=== PATIENT | male | born 1940 | race African-American/Black ===

== ENCOUNTER → 2018-03-19 | Outpatient (CLI) | payer OTHER ==
[~2018-03-19] VITALS: Ht 180.3 cm; Wt 116.1 kg
[~2018-03-19] MED LIST: ASPIR 8181 MG PO; BACITRAYCIN PLU28 GM TOP; CONSTULOSE10 GM/15 M PO; COZAAR 50 MG TA50 M2 PO; CRESTOR40 MG PO; DICLOFENAC SODIUM; FLOMAX0.4 MG PO; GABAPENTIN 100100 MG PO; HYDRALAZINE 2525 M1 PO; IMDUR 30 MG TAB30 M1 PO; LANTUS100 UNIT/M SUBQ; LASIX 40 MG TAB40 M2 PO; MIRALAX17 GM PO; NITROGLYCERIN0.4 MG SUBLING; NOVOLOG100 UNIT/1 SUBQ; OMEPRAZOLE 20 M20 M1 PO; PLAVIX 75 MG TA75 M1 PO; PROSCAR 5MG TABL5 MG PO; STOOL SOFTENER100 M1 PO; TOPROL XL100 MG PO
--- NOTE | ~2018-03-19 | HPC ---
[facility] [address] [place] [address] PAIN MANAGEMENT CONSULTATION Name: GALLITOIDA Room #: REG [facility] [id number] Admission: 03/19/18 Attend Phys: Federico Thompson DO Discharge: Date of : 40 Report #: [id number] THIS REPORT FOR: //name// CC: IMER NOGUEIRA Physician staff [facility] Federico Thompson DATE OF SERVICE: 03/19/2018 The patient is a 77-year-old gentleman seen in consultation at the request of [place] for evaluation of pain, low back and right leg to the knee. Has paresthesias going down into the thigh and foot. He had epidural injections 5-6 years ago with overall improvement of baseline pain. Had 2 lumbar decompressive laminectomies, initially in 1966 and again in 1970. Notes he did well after those surgeries. He has been doing cardiac rehab the last 3 months with increasing radicular pain, though no other specific antecedent trauma has occurred. He notes pain is exacerbated with standing and walking, gets some relief when he is recumbent. Describes constant, gnawing, throbbing pain, rates anywhere from 8-10 on a VAS. He has been taking oxycodone rarely, mostly Tylenol 650 with better efficacy. Denies bowel or bladder continence changes. REVIEW OF SYSTEMS: Complete review of systems is attached to chart and gone over with the patient. He is , does not smoke or drink alcohol to excess. History of diabetes, pleased that his hemoglobin A1c is about 7.9, does use insulin. Significant respiratory disease, uses albuterol and budesonide. Metoprolol and losartan for hypertension, endovascular stents multiple over the years, had coronary artery bypass graft surgery in 2008, has had up to 10 stents, the last one being 2 years ago, does take Plavix. Dyslipidemia for which he takes lovastatin. Benign prostatic hypertrophy for which he takes tamsulosin and finasteride. Gastroesophageal reflux for which he takes omeprazole. He has been taking some prednisone recently for axial back pain with some efficacy. 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 Pain impact score is fairly high, averaging 62/70. PHYSICAL EXAMINATION: GENERAL: Reveals a 5 feet 10 inches, 259 pound gentleman, BMI is 35.7 kg per meter squared. Blood pressure 122/66, pulse 71, respirations are 14. Subjective pain score is 8 on a VAS at present. NEUROLOGIC: Cranial nerves 2-12 are grossly intact. HEENT: Pupils equal, react to light and accommodation. Extraocular muscles are intact. NECK: Thyroid is unremarkable. Cervical range of motion is full. MUSCULOSKELETAL: Upper extremity strength is preserved. Does have an [address] [address] PAIN MANAGEMENT CONSULTATION Name: IDA CONTI Room #: REG CLDebbie Corley#: [id number] Admission: 03/19/18 Attend Phys: Federico Thompson DO Discharge: Date of : 40 Report #: [id number] endomorphic build. He has a difficult time rising from the chair. Markedly antalgic gait. Right dorsiflexion strength is significantly limited at about 1/5, right lower extremity extension and hip flexion is limited about 2-3/5. Left leg is stronger at 3-4/5. Straight leg raise is negative. Patellar and Achilles reflexes are diminished symmetrically. Passive rotation of the hip exacerbates some pain, though BURT test is negative. DIAGNOSTIC STUDIES: Include x-ray of the right hip, which does note osteoarthritic changes, MRI of the lumbar spine from 07/12/2015 had noted severe right neuroforaminal narrowing at L4-L5 and bilateral severe neuroforaminal narrowing at L5-S1. ASSESSMENT: Symptomatic lumbar radiculopathy status post decompressive laminectomy with ongoing right L4-L5 radicular pain, component of osteoarthritis. RECOMMENDATIONS: 1. We will seek authorization for lumbar epidural injection under fluoroscopy off Plavix for 7 days, right of midline L4-L5. 2. Continue current medications unchanged. 3. Consideration for right hip injection if indicated clinically. Thank you for allowing me to participate in the patient's care. I will keep you abreast of our progress. <ELECTRONICALLY SIGNED> By: Federico Thompson DO 03/22/18 [id number] Federico Thompson DO /nt
[2018-03-19 12:38] VITALS: BP 122/66
== END ==
LOC: PAIN 07:18
DX: M54.16 Radiculopathy, lumbar region (principal); M54.5 Low back pain

== ENCOUNTER → 2018-03-26 | Outpatient (CLI) | payer OTHER ==
[~2018-03-26] VITALS: Ht 180.3 cm; Wt 117.3 kg
--- NOTE | ~2018-03-26 | HPC ---
[facility] [address] [place] [address] PAIN MANAGEMENT CONSULTATION Name: IDA CONTI [facility] #: [facility] [id number] Admission: 03/26/18 Attend Phys: Federico Thompson DO Discharge: Date of : 40 Report #: [id number] THIS REPORT FOR: //name// CC: IMER NOGUEIRA Physician staff Federico Thompson DATE OF SERVICE: 03/26/2018 The patient is a very pleasant 77-year-old gentleman, prior seen in consultation 03/19/2018, diagnosed with symptomatic lumbar radiculopathy status post decompressive laminectomy, osteoarthritis, right hip. We sought authorization for epidural injection under fluoroscopy, off Plavix for 7 days. Returns to pain clinic today for said injection. I did review MRI, which was obtained 03/17/2018. Does show S-shaped lumbar curvature, multilevel osteophytes and spondylosis. Severe central narrowing at L2-L3. L3-L4 notes severe central stenosis, severe bilateral neural foraminal stenosis. L4-L5 notes post-surgical changes bilateral laminectomies with moderate to severe right neural foraminal narrowing. L5-S1 notes bilateral facet arthropathy. ASSESSMENT: Symptomatic lumbar radiculopathy by clinical exam and history, status post lumbar decompressive laminectomy. RECOMMENDATIONS: Epidural injection under fluoroscopy today at L4-L5. Resume Plavix tomorrow. Follow up in 3 weeks for reevaluation. PROCEDURE: Lumbar epidural injection under fluoroscopy. PROCEDURE NOTE: After both written and informed consent to include risk of spinal cord damage, increased pain, weakness and dural puncture, the patient was taken to the fluoroscopy suite, placed in the prone position. After sterile prep and drape, a skin wheal with lidocaine was raised. A 22-gauge epidural Tuohy needle was inserted in the midline at L4-L5 with good loss to resistance. Negative aspiration for cerebrospinal fluid or blood was noted. Then 1 mL of Omnipaque under biplanar fluoroscopy showed good spread within the epidural space. This was followed with 60 mg of triamcinolone plus 1 mL of 1.5% preservative-free Xylocaine, 0.5 mL Xylocaine was then injected to flush the needle; it was removed. The patient was monitored for an appropriate period of time and discharged in good and stable condition. <ELECTRONICALLY SIGNED> By: Federico Thompson DO 03/29/18 [id number] Federico Thompson DO /nt
[2018-03-26 08:13] VITALS: BP 130/67
== END | disposition home or self-care (01) ==
LOC: PAIN 06:48
DX: M54.16 Radiculopathy, lumbar region (principal); G89.29 Other chronic pain; M16.11 Unilateral primary osteoarthritis, right hip; J45.909 Unspecified asthma, uncomplicated; Z88.0 Allergy status to penicillin; Z98.890 Other specified postprocedural states; Z79.899 Other long term (current) drug therapy; Z79.82 Long term (current) use of aspirin

== ENCOUNTER → 2018-04-16 | Outpatient (CLI) | payer OTHER ==
[~2018-04-16] VITALS: Ht 180.3 cm; Wt 116.6 kg
[~2018-04-16] MED LIST changes: +METFORMIN HCL500 MG PO
[2018-04-16 10:53] VITALS: BP 129/72
== END | disposition home or self-care (01) ==
LOC: PAIN 06:32
DX: M54.16 Radiculopathy, lumbar region (principal)

== ENCOUNTER → 2018-05-14 | Outpatient (CLI) | payer OTHER ==
[~2018-05-14] VITALS: Ht 180.3 cm; Wt 115.8 kg
--- NOTE | ~2018-05-14 | HPC ---
[facility] [place] [address] PAIN MANAGEMENT CONSULTATION Name: GALLITOIDA Room #: REG [facility] [id number] Admission: 05/14/18 Attend Phys: Lali Lofton MD Discharge: Date of : 40 Report #: [id number] THIS REPORT FOR: //name// CC: IMER Lofton Physician staff DATE OF SERVICE: 05/14/2018 FOLLOWUP COMPLAINT: The patient is a 77-year-old black male who has been seen in the Pain Clinic. He suffers from lumbar radiculopathy. He has undergone back injections and gleaned some benefit from these. He returns today indicating that he has gleaned benefit from the last injection. He does have some soreness in the low back area, but overall things have improved. His concern now is that of his right leg. He has some problem with his right hip as well as with the right knee. He has been told that he has an ejection fraction in the 20s to 30s. He has some concern in regards to the possibility of undergoing hip replacement/knee replacement in the future. He rates his pain as a 9/10 at this point. Right hip is quite problematic. ALLERGIES: PENICILLIN. CURRENT MEDICATIONS: Metformin 500 mg, diclofenac drops to the eyes, Proscar 5 mg b.i.d., insulin 8 units subQ q. 5 minutes before meals, Lantus 100 units/35 units subq at bedtime, omeprazole 20 mg, stool softener, docusate 100 mg, lactulose 4 times daily, MiraLax 17 grams, bacitracin 28 grams ointment b.i.d. topical, Cozaar 50 mg, Lasix 40 mg b.i.d., hydralazine 25 mg t.i.d., Crestor 40 mg, Imdur 30 mg 2 tablets t.i.d., Nitrostat 0.4 mg sublingual, Flomax 0.4 mg, metoprolol XL 100 mg, Neurontin 100 mg b.i.d., aspirin 81 mg, and Plavix 75 mg. PAIN CLINIC ASSESSMENT: 1. History of osteoarthritis. The patient has arthritic changes in his hip as well as some pain and discomfort in his right knee. Height 5 feet 11 inches, weight 255 pounds, BMI is 35.6. 2. Vital signs: Blood pressure 127/64, pulse 80, respiratory rate 16, room air saturation 97%. 3. Pain intensity 05/31. 4. Fall risk. The patient uses a walker. Uses a cane when he is at home. Occasionally, dizzy at times. He has not fallen in the last 3 months. 5. The patient is on a blood thinner, Plavix. 6. History of hypertension. 7. Opioid greater than 6 weeks. The patient is not on opioid regimen. 8. Risk assessment tool. 9. Functional assessment tool 59/70. 10. Recreational drug use. The patient denies use of recreational drugs. 11. Tobacco: The patient has never smoked. [address] [address] PAIN MANAGEMENT CONSULTATION Name: GALLITOIDA Glenda Room #: REG CLDebbie Corley#: [id number] Admission: 05/14/18 Attend Phys: Lali Lofton MD Discharge: Date of : 40 Report #: [id number] 12. Alcohol: The patient denies use of alcoholic beverages. PHYSICAL EXAMINATION: GENERAL: The patient is a well-developed, somewhat obese black male, appears his stated age. He is alert and oriented x 3. His is present with him. HEENT: Normocephalic, atraumatic. Extraocular eye muscles intact. Sclerae nonicteric. Mucous membranes are moist. NECK: Without JVD or adenopathy. HEART: Regular rate. ABDOMEN: Protuberant. LUNGS: Decreased breath sounds secondary to the patient's body habitus. EXTREMITIES: Upper extremity muscle strength is judged to be 4+/5 for the major muscle groups. Lower extremity, the patient has muscle strength is judged to be 5- for the major muscle groups in the lower extremity. The patient uses his hands to go from a sitting to a standing position takes a few seconds to stand and get upright. Walks with the use of a rolling walker. IMPRESSION: 1. History of arthritic changes/osteoarthritis involving the right hip and knee. 2. Myocardial history -- ejection fraction 20s-30s. 3. Diabetes mellitus. 4. History of lumbar laminectomies with history of lumbar radiculopathy and if we had not already said, I think he may have osteoarthritic changes in the right hip. 5. Essential hypertension. 6. Chronic kidney disease stage 2. 7. History of atrial fibrillation. 8. History of coronary artery bypass grafting. 9. Gastroesophageal reflux. 10. Benign prostatic hypertrophy. 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 12. Peptic ulcer history. RECOMMENDATIONS: We discussed treatment options with the patient. At this juncture, he is contemplating the possibility of undergoing a hip injection. The patient states that he is going to talk with another surgeon. He is contemplating the possibility of undergoing a right hip replacement. He would like to undergo a right knee injection or replacement in the future if possible. He will follow up with us in the future. [address] [address] PAIN MANAGEMENT CONSULTATION Name: IDA CONTI Room #: REG [facility] Barney#: [id number] Admission: 05/14/18 Attend Phys: Lali Lofton MD Discharge: Date of : 40 Report #: [id number] We would like to thank you for letting us participate in his care. We hope he continues to improve. By: [id number] Lali Lofton MD /valerie
[2018-05-14 13:55] VITALS: BP 127/64
== END ==
LOC: PAIN 07:04
DX: M54.16 Radiculopathy, lumbar region (principal); E11.22 Type 2 diabetes mellitus with diabetic chronic kidney disease; I12.9 Hypertensive chronic kidney disease with stage 1 through stage 4 chronic kidney disease, or unspecified chronic kidney disease; N18.2 Chronic kidney disease, stage 2 (mild); I48.91 Unspecified atrial fibrillation; I25.10 Atherosclerotic heart disease of native coronary artery without angina pectoris; K21.9 Gastro-esophageal reflux disease without esophagitis; N40.1 Benign prostatic hyperplasia with lower urinary tract symptoms

== ENCOUNTER → 2019-01-19 | Outpatient (CLI) | payer OTHER ==
[~2019-01-19] VITALS: Ht 180.3 cm; Wt 113.3 kg
[~2019-01-19] MED LIST changes: +HYDROCODON-ACE1 EAC7 PO
--- NOTE | ~2019-01-19 | HPC ---
[facility] [address] [place] [address] PAIN MANAGEMENT CONSULTATION Name: IDA CONTI Glenda Room #: REG [facility] Barney#: [id number] Admission: 01/19/19 ������������������ Attend Phys: Lali Lofton MD Discharge: ������������������ Date of : 40 Report #: [id number] THIS REPORT FOR: //name// CC: IMER Lofton Physician staff DATE OF SERVICE: 01/19/2019 CHIEF COMPLAINT: Pain in my left hip is better since I had injection, but I am having pain in my back that was helped with the last injection. HISTORY: The patient is a 78-year-old gentleman who has been followed in the pain clinic. As you recall, he has had back pain for a number of years. He has had 2 back surgeries in the past. He has noted pain and discomfort involving his right hip. States that he has [id number] problems with his hip. He underwent an injection and noted some benefit from that. He is having some pain and discomfort in his left hip. He feels that this might be exacerbated because of his change in mobility because of pain and discomfort in the right hip. He feels that the pain in the low back area improved after the last epidural steroid injection. He has returned today with the hopes of undergoing an epidural steroid injection. He has continued to take his Plavix. He states that he tries to stay as active as possible. Pain is sometimes quite problematic. He is unable to engage in certain activities. He is limited in the amount of aspirin type medications that he can take. He feels that sometimes just a small amount of pain medicine would afford him a much more comfortable level of activity and they him to engage in other activities. He continues to walk with a rolling walker. ALLERGIES: PENICILLIN. CURRENT MEDICATIONS: Metformin 500 mg, diclofenac drops to the eye, Proscar 5 mg b.i.d., insulin 8 units subcutaneous every 5 minutes before meals, Lantus 35 units subcutaneous at bedtime, omeprazole 20 mg, stool softener, docusate 100 mg, lactulose 4 times daily, MiraLax 17 grams, Bacitracin 28 grams ointment b.i.d. topical, Cozaar 50 mg, Lasix 40 mg b.i.d., hydralazine 25 mg t.i.d., Crestor 40 mg, Imdur 30 mg 2 tablets t.i.d., Nitrostat 0.4 mg sublingual, Flomax 0.4 mg, metoprolol XL 100 mg b.i.d., Neurontin 100 mg b.i.d., aspirin 81 mg, Plavix 75 mg. PAIN CLINIC ASSESSMENT/PQRS: 1. History of osteoarthritis involving his low back as well as his left and right hip with [id number] pain. Height 5 feet 11 inches, weight 249 pounds, BMI is 34.9. 2. VITAL SIGNS: Blood pressure 131/70, pulse 67, respiratory rate 16, room air saturation 99%. [place] [address] PAIN MANAGEMENT CONSULTATION Name: GALLITOIDA Room #: REG CLeDbbie Corley#: [id number] Admission: 01/19/19 ������������������ Attend Phys: Lali Lofton MD Discharge: ������������������ Date of : 40 Report #: [id number] 3. Pain intensity 04/30. 4. Fall history. The patient needs some help when he is standing. He has not fallen in the last 3 months. 4. Blood thinner. The patient is on Plavix. 5. Hypertension. The patient has been treated for hypertension. 6. Opioid greater than 6 weeks. The patient is not on an opioid regimen. 7. Risk assessment for opioid low. 8. Functional assessment /. 9. Recreational drug use. The patient denied. 10. Alcohol: The patient denies without use of alcoholic beverages. PHYSICAL EXAMINATION: GENERAL: The patient is a well-developed, well-nourished, somewhat obese black male, appears his stated age. He is alert and oriented x 3. His affect is appropriate. Speech is fluent. HEAD, EYES, EARS, NOSE, AND THROAT: Normocephalic, atraumatic. Extraocular eye muscles intact. Sclerae nonicteric. Mucous membranes are moist. NECK: Without adenopathy or JVD. HEART: Regular rate. ABDOMEN: Protuberant. Bowel sounds present. LUNGS: Generally clear to auscultation, the patient has pain and discomfort in lower portion of his back with pain that is radiating down the L4-L5 dermatomal distribution. Has some perception of weakness of the legs. Use of a walker as well as a cane. Straight leg raise positive on the right. RECOMMENDATIONS: We discussed treatment options with the patient. He states he has talked with his positions at the [facility]. He is not a surgical candidate given his multitude of problems with his heart, diabetes, peripheral neuropathy and other problems. He has returned today for an epidural steroid injection. It is felt that the bursa injection on the right hip was helpful at the last visit to the [facility]. He will return to the pain clinic and undergo an epidural steroid injection. He will also stop taking his Plavix medication. We would like to thank you for letting us participate in his care. We hope provide the patient with hydrocodone 5 one tablet of p.o. b.i.d. I feel that this would be reasonable given his situation. I think this would enable him to become more active. States that he is unable to go to [employer] and other functions because oftentimes his pain becomes quite problematic. He was hoping that use of a small amount of pain medication would allow him greater mobility. ��������������������������������������������� ���������������������������������������� By: ��������������������������������������������� [id number] Lali Lofton MD /[facility]
[2019-01-19 09:11] VITALS: BP 131/70
--- NOTE | 2019-01-19 09:16 | NUR ---
Pain Clinic Assessment: 1. History of Osteoarthritis: History of Rheumatoid Arthritis: 2. Height: 5 ft. 11 in. 180.3 cm. Weight: 249.8 lb. oz. 113.309 kg. Patient's BMI: 34.9 3. Vital Signs: BP: 131/70 Pulse: 67 Resp: 16 Temp: 02 Sat: 99 ECG Mon: 4. Pain Intensity: 8 5. Fall Risk: Dizziness: N Needs help standing or walking: N Fallen in the last 3 months: N Fall risk comments: USES WALKER WHEN OUT, AND A CANE AT HOME PT HAS SOME OCCASIONAL DIZZINESS 6. Patient on Blood Thinner: PLAVIX 7. History of Hypertension: Y 8. Opioid Therapy greater than 6 weeks: N Opiate Contract Signed: 9. Risk Assessment Tool Provided: LOW 10. Functional Assessment Tool: 59/70 11. Recreational Drug Use: Never Drug Type: Tobacco Use: Never Smoker Tobacco Type: Amount or Packs/day: How Many Years: Alcohol Use: No Frequency: Quant:
== END ==
LOC: PAIN 07:03
DX: I10 Essential (primary) hypertension (principal); M19.90 Unspecified osteoarthritis, unspecified site; Z91.81 History of falling; Z88.0 Allergy status to penicillin; Z79.899 Other long term (current) drug therapy; Z79.891 Long term (current) use of opiate analgesic

== ENCOUNTER → 2019-01-28 | Outpatient (CLI) | payer OTHER ==
[~2019-01-28] VITALS: Ht 177.8 cm; Wt 113.9 kg
--- NOTE | ~2019-01-28 | HPC ---
[facility] [place] [address] PAIN MANAGEMENT CONSULTATION Name: IDA CONTI Room #: REG [facility].#: [id number] Admission: 01/28/19 ������������������ Attend Phys: Lali Lofton MD Discharge: ������������������ Date of : 40 Report #: [id number] THIS REPORT FOR: //name// CC: IMER Lofton Physician staff DATE OF SERVICE: 01/28/2019 FOLLOWUP COMPLAINT: Having some pain that is going down into my left leg. I would like to have an injection. HISTORY: The patient is a 78-year-old gentleman who has been seen in the Pain Clinic because of chronic back pain. He has undergone back surgery in the past. He has a well-healed scar in the lower portion of his back. He also has pain in his hip. He states that he has some [id number] problems. He notes that the pain he is experiencing radiates down the lateral side of his left leg. He feels it goes to his knee. He had epidural steroid injections in the past. He states that was helpful. He is using Plavix medication. He has stopped taking Plavix with the intention of undergoing an epidural steroid injection today. ALLERGIES: PENICILLIN. CURRENT MEDICATIONS: Metformin 500 mg, diclofenac drops to the eye, Proscar 5 mg b.i.d., insulin 8 units subQ q. 8 minutes p.r.n. meals, Lantus 35 units subQ at bedtime, omeprazole 20 mg, stool softener, docusate 100 mg, lactulose 4 times daily, MiraLax 17 grams, bacitracin 20 grams ointment b.i.d. topical, Cozaar 50 mg, Lasix 40 mg b.i.d., hydralazine 25 mg t.i.d., Crestor 50 mg, Imdur 30 mg 2 tablets t.i.d., Nitrostat 0.4 mg sublingual, Flomax 0.4 mg, metoprolol XL 100 mg b.i.d., Neurontin 100 mg b.i.d., aspirin 81 mg, Plavix 75 mg. PAIN CLINIC ASSESSMENT/PQRS: 1. History of osteoarthritis involving the low back area as well as his left and right hip with psar-fy-[id number] pain. 2. Height 5 feet 10 inches, weight 251 pounds, BMI 36. 3. VITAL SIGNS: Blood pressure 129/70, pulse 77, respiratory rate 18, room air saturation 98%. 4. Pain intensity 7/10. 5. Fall history: The patient uses a walker when he is out in a cane when he is at home. Has had some occasional dizziness. Has not fallen since we saw him last. 6. Plavix. The patient is on Plavix and has stopped taking the Plavix medication with desire to undergo an injection. 7. History of hypertension. The patient is being treated for hypertension. 8. Opioid greater than 6 weeks. The patient is not on a chronic opioid regimen. [address] [address] PAIN MANAGEMENT CONSULTATION Name: IAD CONTI Room #: REG LAURA Corley#: [id number] Admission: 01/28/19 ������������������ Attend Phys: Lali Lofton MD Discharge: ������������������ Date of : 40 Report #: [id number] 9. Risk assessment tool, low for opioid use. 10. Functional assessment tool 59/70. 11. Recreational drug use. The patient denies use of recreational drugs. 12. Alcohol: The patient denies frequent use of alcoholic beverages. 13. Tobacco: The patient denies use of tobacco. PHYSICAL EXAMINATION: GENERAL: The patient is a well-developed, well-nourished, somewhat obese black male, appears his stated age. He is alert and oriented x 3. His affect is appropriate. Speech is fluent. HEENT: Normocephalic, atraumatic. Extraocular eye muscles intact. Sclerae are nonicteric. Mucous membranes are moist. NECK: Without adenopathy or JVD. HEART: Regular rate. ABDOMEN: Protuberant. Bowel sounds present. EXTREMITIES: Upper extremity muscle strength is judged to be 5-/5 for the major muscle groups in the upper extremity. The patient has pain and discomfort in the lower back area with pain along the left lateral L4-L5 dermatomal distribution. Also, has some perception of some pain and discomfort in his left hip as well as in his right hip cleared. Uses and ambulates with use of a walker with wheels. IMPRESSION: 1. Lumbar radicular pain involving the left L4-L5 dermatomal distribution. 2. Diabetes. 3. Asthma. 4. Heart disease. 5. Stomach problems. 6. Joint disease/arthritis. RECOMMENDATIONS: We discussed treatment options with the patient. Risks and benefits of an injection were discussed. The patient has had surgery. We have discussed the possible complication of the procedure, which could include but are not limited to infection, increased muscle soreness, bleeding, nerve damage with paralysis, spinal headache and the patient elects to proceed. PROCEDURE NOTE: The patient was taken to the procedure area. He was assisted in getting on examination table. His back was sterilely prepped with a Betadine solution at the L5-S1 in the lumbar area. The patient has a well-healed scar of about 5 inches length from the L4 to about L2 area. It appears that the left hemilaminectomy at about the L5 has been performed. Fluoroscopy using anterior, posterior as well as lateral viewing were implemented. Because of this surgery, we will proceed with a transforaminal epidural steroid injection. The patient's back was sterilely prepped with a Betadine solution and allowed to dry. Fluoroscopy using ____ to direct the needle placement was undertaken. The patient's back was anesthetized at the left L4-L5 area with a 25-gauge needle. [address] [address] PAIN MANAGEMENT CONSULTATION Name: GALLITOIDA Room #: REG [facility]#: [id number] Admission: 01/28/19 ������������������ Attend Phys: Lali Lofton MD Discharge: ������������������ Date of : 40 Report #: [id number] A 0.25% bupivacaine was placed. A 20-gauge Chiba needle was then directed using the transforaminal approach. After appropriate placement using anterior as well as lateral imaging with fluoroscopy, a total of 80 mg Depo-Medrol, 40 mg triamcinolone was injected. The patient tolerated the procedure well. The patient's pain decreased from 0-1 at the time of discharge. There were no complications. He will resume use of his Plavix. We would like to thank you for letting us participate in his care. We hope he continues to improve. ��������������������������������������������� ���������������������������������������� By: ��������������������������������������������� 1204 [id number] Lali Lofton MD /nt
[2019-01-28 09:18] VITALS: BP 129/70
--- NOTE | 2019-01-28 09:22 | NUR ---
Pain Clinic Assessment: 1. History of Osteoarthritis: Left Upper Extremity Right Lower Extremity Right Upper Extremity History of Rheumatoid Arthritis: Not Applicable 2. Height: 5 ft. 10 in. 177.8 cm. Weight: 251.0 lb. oz. 113.853 kg. Patient's BMI: 36.0 3. Vital Signs: BP: 129/70 Pulse: 77 Resp: 18 Temp: 02 Sat: 98 ECG Mon: 4. Pain Intensity: 7 5. Fall Risk: Dizziness: N Needs help standing or walking: N Fallen in the last 3 months: N Fall risk comments: USES WALKER WHEN OUT, AND A CANE AT HOME PT HAS SOME OCCASIONAL DIZZINESS 6. Patient on Blood Thinner: PLAVIX 7. History of Hypertension: Y 8. Opioid Therapy greater than 6 weeks: N Opiate Contract Signed: 9. Risk Assessment Tool Provided: LOW-0 10. Functional Assessment Tool: 59/70 11. Recreational Drug Use: Never Drug Type: Tobacco Use: Never Smoker Tobacco Type: Amount or Packs/day: How Many Years: Alcohol Use: No Frequency: Quant:
== END | disposition home or self-care (01) ==
LOC: PAIN 06:42
DX: M54.16 Radiculopathy, lumbar region (principal); E11.9 Type 2 diabetes mellitus without complications; J45.909 Unspecified asthma, uncomplicated; I10 Essential (primary) hypertension; M19.90 Unspecified osteoarthritis, unspecified site; E66.9 Obesity, unspecified; Z88.0 Allergy status to penicillin; Z79.4 Long term (current) use of insulin; Z79.899 Other long term (current) drug therapy; Z79.82 Long term (current) use of aspirin; Z79.891 Long term (current) use of opiate analgesic

== ENCOUNTER → 2019-04-01 | Outpatient (CLI) | payer OTHER ==
[~2019-04-01] VITALS: Ht 177.8 cm; Wt 113.9 kg
--- NOTE | ~2019-04-01 | HPC ---
[facility] [address] [place] [address] PAIN MANAGEMENT CONSULTATION Name: GALLITOIDA [facility] [id number] Admission: 04/01/19 ������������������ Attend Phys: Lali Lofton MD Discharge: ������������������ Date of : 40 Report #: [id number] THIS REPORT FOR: //name// CC: IMER Lofton Physician staff DATE OF SERVICE: 04/06/2019 CHIEF COMPLAINT: Here for followup. FOLLOWUP HISTORY: The patient is a 78-year-old gentleman who has been followed in the pain clinic. As you may recall, he has had chronic back pain. He has had back surgeries in the past. He has undergone epidural injections and has gleaned benefit from that. As you may recall, his pain is somewhat limiting in his activities of daily living. Because of the pain, he is limited in his ability to walk for long distances. Short distances are problematic as well. Continues to have pain that radiates down into his left leg. Also, has some iawq-xw-ytku problems. He has some problem with his hip. Because of his cardiac condition, which has decreased to about 25% down from 39% at the last visit. He is not a surgical candidate. He feels that the epidural steroid injection was beneficial and that in the future, he would like to undergo another. Notes his legs feel weak. Prolonged standing in the kitchen is problematic. 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 ALLERGIES: PENICILLIN. CURRENT MEDICATIONS: Metformin 500 mg, diclofenac drops in the eyes, Proscar 5 mg b.i.d., insulin 8 units subcutaneously p.r.n. meals, Lantus 35 units subcutaneously at bedtime, omeprazole 20 mg, stool softener - docusate 100 mg, lactulose 4 times daily, MiraLax 17 grams, bacitracin 20 mg ointment b.i.d., topical, Cozaar 50 mg, Lasix 40 mg b.i.d., hydralazine 25 mg t.i.d., Crestor 50 mg, Imdur 30 mg 2 tablets t.i.d., Nitrostat 0.04 mg, Flonase 0.4 mg, metoprolol XL 100 mg b.i.d., Neurontin 100 mg b.i.d., aspirin 81 mg, Plavix 40 mg. PAIN CLINIC ASSESSMENT/PQRS: 1. History of osteoarthritis involving the low back area as well as the right hip with bone pain. 2. Height 5 feet 10 inches, weight 251 pounds, BMI is 36. 3. Vital Signs: Blood pressure 102/63, pulse 72, respiratory rate 20, room air saturation 99%. 4. Pain intensity 03/30. 5. Fall history: The patient has not fallen since we saw him last. He uses a walker when he is out. Using a cane at home. He has [place] [address] PAIN MANAGEMENT CONSULTATION Name: GALLITOIDA Room #: REG [facility]ney#: [id number] Admission: 04/01/19 ������������������ Attend Phys: Lali Lofton MD Discharge: ������������������ Date of : 40 Report #: [id number] 6. Blood thinner. The patient is on Plavix. 7. Hypertension. The patient is being treated for hypertension. 8. Opioids greater than 6 weeks. The patient is using pain medications as provided to the pain clinic to help control this pain. 9. Risk assessment tool, low for opioid use. 10. Functional assessment tool 59/70. 11. Recreational drug use. The patient denies. 12. Tobacco: The patient has never smoked. 13. Alcohol: The patient denies use of alcoholic beverages. PHYSICAL EXAMINATION: GENERAL: The patient is a well-developed, well-nourished obese black male. He appears his stated age. He is alert and oriented x 3. His affect is appropriate. Speech is fluent. HEENT: Normocephalic, atraumatic. Extraocular eye muscles intact. Sclerae nonicteric. Mucous membranes are moist. NECK: Without adenopathy or JVD. HEART: Regular. ABDOMEN: Protuberant. Bowel sounds present. EXTREMITIES: Upper extremity muscle strength judged to be 5-/5 for the major muscle groups in the upper extremity. The patient has some pain and discomfort in the lower portion of his back with pain in the L4-L5 dermatomal distribution on the left. Walks with a slightly antalgic gait. Uses a cane and has a rolling walker today. IMPRESSION: 1. History of lumbar radicular pain on the left with dermatomal distribution L4-L5. 2. Diabetes. 3. Asthma. 4. Heart disease/congestive heart failure type symptomatology. 5. Stomach problems. 6. Joint disease/arthritis. RECOMMENDATIONS: We discussed treatment options with the patient. At this juncture, we will continue with his medication. He feels that the opioid medication is helpful. 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 He states that he feels that the hydrocodone medication is helpful. At this point, he feels that he would like to continue is medication. He is not having any problems with the medication. Feels that this helps and eases pain. Keeps his medications in a guarded area. He is aware that opioid medications can be problematic in this for some people. He does not feel that is a problem for him. We have also indicates that opioid medications can sometimes become less effective as tolerance develops. A script for his medication of hydrocodone 5/325 one p.o. t.i.d. has been written. He [address] [address] PAIN MANAGEMENT CONSULTATION Name: IDA CONTI Glenda Room #: REG [facility].#: [id number] Admission: 04/01/19 ������������������ Attend Phys: Lali Lofton MD Discharge: ������������������ Date of : 40 Report #: [id number] will call us if he has any concerns. We would like to thank you for letting us participate in his care. We hope he continues to improve. ��������������������������������������������� ���������������������������������������� By: ��������������������������������������������� 0820 1305 Lali Lofton MD /ELOY
[2019-04-01 13:24] VITALS: BP 102/63
--- NOTE | 2019-04-01 13:41 | NUR ---
Pain Clinic Assessment: 1. History of Osteoarthritis: Left Upper Extremity Right Lower Extremity Right Upper Extremity History of Rheumatoid Arthritis: Not Applicable 2. Height: 5 ft. 10 in. 177.8 cm. Weight: 251.0 lb. oz. 113.853 kg. Patient's BMI: 36.0 3. Vital Signs: BP: 102/63 Pulse: 72 Resp: 20 Temp: 02 Sat: 99 ECG Mon: 4. Pain Intensity: 7 5. Fall Risk: Dizziness: Y Needs help standing or walking: Y Fallen in the last 3 months: N Fall risk comments: USES WALKER WHEN OUT, AND A CANE AT HOME PT HAS SOME OCCASIONAL DIZZINESS 6. Patient on Blood Thinner: PLAVIX 7. History of Hypertension: Y 8. Opioid Therapy greater than 6 weeks: N Opiate Contract Signed: 9. Risk Assessment Tool Provided: LOW-0Y 10. Functional Assessment Tool: 59/70 11. Recreational Drug Use: Never Drug Type: Tobacco Use: Never Smoker Tobacco Type: Amount or Packs/day: How Many Years: Alcohol Use: No Frequency: Quant:
== END ==
LOC: PAIN 06:47
DX: M54.5 Low back pain (principal); E11.9 Type 2 diabetes mellitus without complications; J45.909 Unspecified asthma, uncomplicated; I11.0 Hypertensive heart disease with heart failure; I50.9 Heart failure, unspecified; Z79.4 Long term (current) use of insulin; Z79.891 Long term (current) use of opiate analgesic; Z79.899 Other long term (current) drug therapy; Z88.0 Allergy status to penicillin

== ENCOUNTER → 2019-06-01 | Outpatient (CLI) | payer OTHER ==
[~2019-06-01] VITALS: Ht 180.3 cm; Wt 117.8 kg
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
[2019-06-01 12:49] VITALS: BP 105/68
--- NOTE | 2019-06-01 12:50 | NUR ---
Pain Clinic Assessment: 1. History of Osteoarthritis: Left Upper Extremity Right Lower Extremity Right Upper Extremity History of Rheumatoid Arthritis: Not Applicable 2. Height: 5 ft. 11 in. 180.3 cm. Weight: 259.8 lb. oz. 117.845 kg. Patient's BMI: 36.3 3. Vital Signs: BP: 105/68 Pulse: 70 Resp: 18 Temp: 02 Sat: 95 ECG Mon: 4. Pain Intensity: 10 5. Fall Risk: Dizziness: Y Needs help standing or walking: N Fallen in the last 3 months: N Fall risk comments: USES WALKER WHEN OUT, AND A CANE AT HOME PT HAS SOME OCCASIONAL DIZZINESS 6. Patient on Blood Thinner: PLAVIX 7. History of Hypertension: Y 8. Opioid Therapy greater than 6 weeks: Y Opiate Contract Signed: 9. Risk Assessment Tool Provided: LOW 10. Functional Assessment Tool: 59/70 11. Recreational Drug Use: Never Drug Type: Tobacco Use: Never Smoker Tobacco Type: Amount or Packs/day: How Many Years: Alcohol Use: No Frequency: Quant:
== END | disposition home or self-care (01) ==
LOC: PAIN 06:59
DX: M54.16 Radiculopathy, lumbar region (principal); E11.9 Type 2 diabetes mellitus without complications; J45.909 Unspecified asthma, uncomplicated; M16.11 Unilateral primary osteoarthritis, right hip; I10 Essential (primary) hypertension; Z88.0 Allergy status to penicillin; Z79.84 Long term (current) use of oral hypoglycemic drugs; Z79.899 Other long term (current) drug therapy; Z79.82 Long term (current) use of aspirin; Z79.01 Long term (current) use of anticoagulants

== ENCOUNTER → 2019-07-13 | Outpatient (CLI) | payer OTHER ==
[~2019-07-13] VITALS: Ht 180.3 cm; Wt 120.4 kg
[2019-07-13 11:14] VITALS: BP 130/63
--- NOTE | 2019-07-13 12:05 | NUR ---
Pain Clinic Assessment: 1. History of Osteoarthritis: Left Upper Extremity Right Lower Extremity Right Upper Extremity History of Rheumatoid Arthritis: Not Applicable 2. Height: 5 ft. 11 in. 180.3 cm. Weight: 265.4 lb. oz. 120.385 kg. Patient's BMI: 37.0 3. Vital Signs: BP: 130/63 Pulse: 76 Resp: 18 Temp: 02 Sat: 100 ECG Mon: 4. Pain Intensity: 7 5. Fall Risk: Dizziness: Y Needs help standing or walking: Y Fallen in the last 3 months: Y Fall risk comments: USES WALKER WHEN OUT, AND A CANE AT HOME PT HAS SOME OCCASIONAL DIZZINESS 6. Patient on Blood Thinner: PLAVIX 7. History of Hypertension: Y 8. Opioid Therapy greater than 6 weeks: Y Opiate Contract Signed: 9. Risk Assessment Tool Provided: ANGELIQUE 10. Functional Assessment Tool: 59/70 11. Recreational Drug Use: Never Drug Type: Tobacco Use: Never Smoker Tobacco Type: Amount or Packs/day: How Many Years: Alcohol Use: No Frequency: Quant:
--- NOTE | 2019-07-29 08:25 | HPC ---
[facility] [address] [place] [address] PAIN MANAGEMENT CONSULTATION Name: GALLITOIDA Doshi Room #: REG RAJWINDER Barney#: [id number] Admission: 07/13/19 Attend Phys: Lali Lofton MD Discharge: Date of : 40 Report #: [id number] THIS REPORT FOR: //name// CC: IMER Lofton Physician staff DATE OF SERVICE: 07/13/2019 CHIEF COMPLAINT: Here for medication renewal and evaluation for epidural steroid injections. HISTORY: The patient is a 78-year-old gentleman who has been followed in the pain clinic. As you know, he suffers from significant pain associated with lumbar radiculopathy. He has had back surgery in 1966 and 1970. He is no longer a surgical candidate due to his heart condition. He has a decreased ejection fraction. He has been informed by his surgeons that he would not survive a major surgery. Continues to have improvement with epidural steroid injections. The patient also has a number of other ailments which include diabetes type 1, hypertension, increased BMI, pulmonary issues, arthritis of his left and right hip with slbf-vq-jwjh pain in the right side. The patient has been treated with use of opioid medications, which he finds beneficial. He also finds epidural steroid injections beneficial. He has returned today for renewal of his medications. His pain waxes and wanes. Today, he feels that things are going reasonably well and he would like to postpone the injection into the future. He has had no complications with use of the opioid medications. He finds that hydrocodone 5 mg 1 p.o. t.i.d. have been quite beneficial in helping him to have a more balanced approach to his pain control. He is aware that opioid medications have been problematic in some patients. He is taking his medication as prescribed. He is aware that chronic use of opioid medications may become less effective as time goes on due to development of tolerance. ALLERGIES: PENICILLIN. CURRENT MEDICATIONS: Metformin 500 mg, diclofenac drops in the eye, Proscar 5 mg b.i.d., insulin 8 units subcutaneous p.r.n. with meals, Lantus 30 units subcutaneous at bedtime, omeprazole 20 mg, stool softener, docusate 100 mg, lactulose 4 times daily, MiraLax 17 grams, bacitracin ointment topical b.i.d., Cozaar 50 mg, Lasix 40 mg b.i.d., hydralazine 25 mg t.i.d., Crestor 50 mg, Imdur 30 mg 2 tablets t.i.d., Nitrostat 0.4 mg, Flonase 0.4 mg, metoprolol XL 100 mg b.i.d., Neurontin 100 mg b.i.d., aspirin 81 mg, Plavix 40 mg. PAIN CLINIC ASSESSMENT/PQRS: 1. The patient has pain in the lower portion of his back as well as in his hips. He is suffering from osteoarthritis with bmgy-pa-donh involvement in his hip. He is not being treated for rheumatoid arthritis. [address] [address] PAIN MANAGEMENT CONSULTATION Name: GALLITOIDA Room #: REG CLI MLeslie#: [id number] Admission: 07/13/19 Attend Phys: Lali Lofton MD Discharge: Date of : 40 Report #: [id number] 2. Height 5 feet 11 inches, weight 265 pounds, BMI is 37.0. 3. Vital Signs: Blood pressure 130/63, pulse 76, respiratory rate 18, room air saturation is 100%. 4. Pain intensity 03/30. 5. Fall history: The patient uses a walker when he is out. He uses a cane at home. He experiences some occasional dizziness, but has not fallen. 6. Blood thinner. The patient is on Plavix. 7. Hypertension. The patient is being treated for hypertension. 8. Opioids greater than 6 weeks. The patient receives medication from one source, the pain clinic. 9. Risk assessment tool, low for opioid use. 10. Functional assessment tool 59 of 70. 11. Recreational drug use: The patient denies. 12. Tobacco: The patient has never smoked. 13. Alcohol: The patient denies frequent use of alcoholic beverages. PHYSICAL EXAMINATION: GENERAL: The patient is a well-developed, well-nourished black male. He is obese. He is alert and oriented x 3. His affect is appropriate. Speech is fluent. HEENT: Normocephalic, atraumatic. Extraocular eye muscles intact. Sclerae nonicteric. Mucous membranes are moist. NECK: Without adenopathy or JVD. HEART: Regular rate. ABDOMEN: Protuberant. Bowel sounds present. EXTREMITIES: Upper extremity muscle strength judged to be 5-/5 for the major muscle groups in the upper extremity. The patient has pain and discomfort in lower portion of his back. Has pain in his left as well as in the right hip. Has trqz-ya-erks irritation in the right side. He has some pain and discomfort in the L4-L5 dermatomal distribution with history of lumbar radiculopathy, has history of upper extremity and lower extremity neuropathy. IMPRESSION: 1. History of lumbar radiculopathy, L4-L5 dermatomal distribution, improved with epidural steroid injections. 2. Diabetes. 3. Asthma. 4. 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 5. Heart disease with an ejection fraction of 25%. 6. Gastrointestinal problems/stomach problems. 7. Joint disease with arthritis and fpgt-ql-otjw involvement on the right side. RECOMMENDATIONS: We discussed treatment options with the patient. At this juncture, he feels that his epidural steroid injections have been beneficial. They continue to make life easier for him. He is able to ambulate better with the injections. It has not had problems with elevation of his blood sugars with [facility] [address] [place] [address] PAIN MANAGEMENT CONSULTATION Name: IDA CONTI Glenda Room #: [facility]#: [id number] Admission: 07/13/19 Attend Phys: Lali Lofton MD Discharge: Date of : 40 Report #: [id number] the injections. He will consider injections in the near future. He feels that his medications of hydrocodone are beneficial. He would like to continue with these medications. He feels that the injections are helpful. Possibility of hip injections in the future might be an option. We would like to thank you for letting us participate in his care. We hope he continues to improve. <ELECTRONICALLY SIGNED> By: Lali Lofton MD 07/29/19 0825 [id number] Lali Lofton MD /[facility]
== END ==
LOC: PAIN 07:00
DX: M54.16 Radiculopathy, lumbar region (principal); E11.9 Type 2 diabetes mellitus without complications; J45.909 Unspecified asthma, uncomplicated; G62.9 Polyneuropathy, unspecified; M19.90 Unspecified osteoarthritis, unspecified site; Z88.0 Allergy status to penicillin; Z79.899 Other long term (current) drug therapy